=== PATIENT | male | born 1945 | race Caucasian/White ===

== ENCOUNTER 2018-03-05 13:14 | Emergency (ER) | payer MEDICARE ==
[~2018-03-05] VITALS: Ht 180.3 cm; Wt 89.6 kg
[2018-03-05 13:58] VITALS: Ht 180.3 cm; Wt 89.6 kg
[2018-03-05 17:14] VITALS: BP 136/88
== END 2018-03-05 17:14 | disposition home or self-care (01) ==
LOC: ED 13:14
DX: S60.222A Contusion of left hand, initial encounter (principal); S40.012A Contusion of left shoulder, initial encounter; M54.2 Cervicalgia; M54.5 Low back pain; Z88.0 Allergy status to penicillin; V49.9XXA Car occupant (driver) (passenger) injured in unspecified traffic accident, initial encounter; Y93.89 Activity, other specified; Y92.89 Other specified places as the place of occurrence of the external cause; Y99.8 Other external cause status
CPT/HCPCS: 72072; 82962; 99406; Q0092